=== PATIENT | male | born 1985 | race Caucasian/White ===

== ENCOUNTER 2016-12-01 05:54 | Emergency (ER) | payer SELFPAY ==
[~2016-12-01] VITALS: Ht 177.8 cm; Wt 159.3 kg
[~2016-12-01 05:54] MED LIST: AMOX/K CLAV875 M1 PO; FLEXERIL PO; MUCINEX600 MG PO; TESSALON PER100 MG PO; THERAFL6 PO; VALTREX1 GM OR; ZITHROMAX250 MG PO
[2016-12-01] MEDS ORDERED: FLEXERIL5 MG PO (06:05)
[2016-12-01 08:04] LABS: HEMATOCRIT 41.2 % (39.0-50.0); HEMOGLOBIN 13.9 g/dl (14.0-18.0); IMMATURE GRANULOCYTES 0.3 % (0.0-1.0); MEAN CELL VOLUME 90.4 fL CALC (80.0-100.0); MEAN CORPUSCULAR HGB 30.5 pG CALC (26.0-32.0); MEAN CORPUSCULAR HGB CONC 33.7 g/L CALC (32.0-36.0); NEUT# 4.94 thou/uL (1.82-7.42); RED BLOOD COUNT 4.56 mill/uL (4.70-6.10); RED CELL DISTRI WIDTH 13.1 % (11.5-15.5)
[2016-12-01 08:18] LABS: ALBUMIN 3.6 g/dL (3.2-5.0); ALKALINE PHOSPHATASE 82 u/l (38-126); AMYLASE 53 u/l (30-110); ANION GAP 13 (6-22 (CALC)); BILIRUBIN, TOTAL 0.3 mg/dL (0.0-1.4); BUN 11 mg/dL (9-20); BUN/CREATININE RATIO 13 (12-20 (CALC)); CALCIUM 8.3 mg/dL (8.4-10.2); CARBON DIOXIDE 24 mmol/l (22-30); CHLORIDE 107 mmol/l (95-108); CREATININE 0.8 mg/dL (0.7-1.3); GFR > 60 ML/MIN (>=60 (CALC)); GFR FOR AFR.AMER. > 60 ML/MIN (>=60 (CALC)); GLUCOSE 100 mg/dL (75-110); LIPASE 42 u/l (23-300); POTASSIUM 3.9 mmol/l (3.5-5.1); SGOT/AST 31 u/l (17-59); SGPT/ALT 34 u/l (21-72); SODIUM 140 mmol/l (137-146); TOTAL PROTEIN 6.7 g/dL (6.3-8.2)
[2016-12-01 10:41] LABS: URINE BILIRUBIN - DIPSTICK NEGATIVE (NEGATIVE); URINE BLOOD DIPSTICK NEGATIVE (NEGATIVE); URINE CLARITY CLEAR; URINE COLOR YELLOW; URINE GLUCOSE - DIPSTICK NEGATIVE (NEGATIVE); URINE KETONE NEGATIVE (NEGATIVE); URINE LEUK ESTERASE NEGATIVE (NEGATIVE); URINE NITRITE - DIPSTICK NEGATIVE (Negative); URINE PH 5.5 (4.5-8.0); URINE PROTEIN - DIPSTICK NEGATIVE (NEG-TRACE); URINE SPECIFIC GRAVITY 1.025; URINE UROBILINOGEN - DIPSTICK 0.2 E.U./dL (0.2)
[2016-12-01 11:20] VITALS: BP 143/87
== END 2016-12-01 11:36 | disposition left against medical advice (07) | DRG 392 ==
LOC: ED 05:54
PROVIDERS: Emergency Medicine
DX: R10.32 Left lower quadrant pain (principal); F17.210 Nicotine dependence, cigarettes, uncomplicated; Z91.19 Patient's noncompliance with other medical treatment and regimen; R19.7 Diarrhea, unspecified
CPT/HCPCS: J1956

== ENCOUNTER 2017-05-18 16:23 | Emergency (ER) | payer SELFPAY ==
[~2017-05-18] VITALS: Ht 177.8 cm; Wt 153.0 kg
[~2017-05-18 16:23] MED LIST changes: +FLEXERIL5 MG PO
[2017-05-18] MEDS ORDERED: FLEXERIL PO (16:54)
[2017-05-18] MEDS ORDERED: TRAMADOL HYDROC50 MG PO (16:54)
[2017-05-18] MEDS ORDERED: MOTRIN800 MG PO (16:54)
[2017-05-18 17:20] VITALS: BP 140/70
== END 2017-05-18 17:15 | disposition home or self-care (01) | DRG 552 ==
LOC: ED 16:23
DX: M62.830 Muscle spasm of back (principal); M54.5 Low back pain